=== PATIENT | female | born 1985 | race Caucasian/White ===

== ENCOUNTER 2017-03-11 06:58 | Emergency (ER) | payer OTHER ==
[~2017-03-11] VITALS: Ht 160 cm; Wt 94.1 kg
[~2017-03-11 06:58] MED LIST: INSU100C SC; MTF1000T PO; NPH,100V SC; PNV1TABL4 PO
[2017-03-11 07:05] VITALS: Ht 160 cm; Wt 94.1 kg
[2017-03-11] MEDS ORDERED: KETOROLAC 60 MG INJ IM STA (07:20)
[2017-03-11] MEDS ORDERED: KETOROLAC 30 MG INJ ONE (07:38)
[2017-03-11] MEDS ORDERED: KETOROLAC 60 MG INJ ONE (07:40)
--- NOTE | 2017-03-11 07:54 | ERD ---
ER Documentation Chief Complaint Chief Complaint CRENSHAW & NAUSEA X1 DAY, DENIES COUGH OR CONGESTION. LMP 03/10/17 HPI 31-year-old female complaining of headache since yesterday. Patient also reports fever last night with temperature 101, body ache, and weakness. Patient reports "getting over a cold". The headache is seen in the bilateral frontal region. Patient has photophobia, and reports pain with looking to either side, and with head movement. She took Tylenol last night without relief. She has nausea but no vomiting. Denies coughing currently. Denies abdominal pain or diarrhea. Denies neck pain. ROS All systems reviewed and are negative except as per history of present illness. Medications Home Meds Active Scripts Aspirin/Acetaminophen/Caffeine (Excedrin Extra Strength Caplet) 1 Each Tablet, 1 EACH PO Q6 Y for HEADACHE, #30 TAB Prov:JAGJITRENNY X. FURNITURE MOVER 03/11/17 Reported Medications Nph, Human Insulin Isophane (Humulin N) 100 Units/Ml Vial, 1 UNIT SC AC DINNER, VIAL 09/20/14 Insulin Lispro (Humalog) 100 U/Ml Cartridge, 1 UNITS SC WITH DINNER, EA 09/20/14 Insulin Lispro (Humalog) 100 U/Ml Cartridge, 20 UNITS SC WITH BREAKFAST, EA 09/20/14 Nph, Human Insulin Isophane (Humulin N) 100 Units/Ml Vial, 1 UNIT SC AC BREAKFAST, #1 VIAL 09/20/14 Pnv Cmb#95/Ferrous Fumarate/Fa ( MULTIVITAMINS TABLET) 1 Each Tablet, 1 EACH PO 09/20/14 Metformin* (Glucophage*) 1,000 Mg Tablet, 1000 MG PO BID, TAB 09/20/14 Allergies Allergies: Coded Allergies: No Known Allergy (Unverified , 03/11/17) PMhx/Soc Medical and Surgical Hx: pt denies Surgical Hx History of Surgery: No Hx Miscellaneous Medical Probl: Yes (HX HTN, DM) Hx Alcohol Use: No Hx Substance Use: No Hx Tobacco Use: No Physical Exam Vitals Vital Signs Date Time Temp Pulse Resp B/P Pulse Ox O2 Delivery O2 Flow Rate FiO2 03/11/17 07:05 99.8 96 18 144/90 99 Physical Exam General: Well-developed, well-nourished, conscious and coherent, in no distress Skin: Warm and dry without rash, good texture and turgor Head: Normocephalic without evidence of trauma Eyes: Sclera and conjunctivae normal; pupils equal, round, and reactive to light; extraocular movements are intact Ears: Canals are patent. Tympanic membranes are clear Nose/Face: Without rhinorrhea. Sinuses nontender. Mouth/throat: Mucous membranes are moist. Posterior pharynx clear without erythema or exudates Neck: Supple without meningismus or adenopathy. Carotids are equal. Trachea midline. No bruits or JVD Chest: Normal AP diameter. Good expansion without retractions. Nontender. Lungs are clear to auscultate bilaterally with good tidal volume Heart: Regular rate and rhythm. No murmur, rub, or gallops heard Extremities: Full range of motion. Good strength bilaterally. No clubbing, cyanosis, or edema. Peripheral pulses are intact. Sensation intact Neuro: Alert and oriented 4; GCS 15. Cranial nerves II - XII intact. Motor sensory exam nonfocal. Moves all extremities. Deep tendon reflexes 2+ in all extremities. Speech clear. No pronator drift. Gait steady. Results 24 hrs Current Medications Medications (Trade) Dose Ordered Sig/Sean Route PRN Reason Start Time Stop Time Status Last Admin Dose Admin Ketorolac Tromethamine (Toradol) 60 mg ONCE STAT IM 03/11/17 07:20 03/11/17 07:21 DC 03/11/17 07:41 Procedures/MDM Toradol 60 mg IM given to the patient in the ED. Patient reports reduction of pain after Toradol, although the headache is not completely resolved. I think the likely cause of patient's headache is tension headache. I doubt sinus or dental infection, TMJ syndrome, pseudotumor cerebri, meningitis, encephalitis, giant cell arteritis, glaucoma, subarachnoid hemorrhage, subdural or epidural hematoma, intracranial bleeding or tumor. Discussed with patient the risks and benefits of CT scan. Patient opted to forego CT at this time. Patient is afebrile, in no respiratory distress. Lungs are clear to auscultate. I doubt that patient has pneumonia or bronchitis. Patient appears well, stable for discharge and outpatient management. Medical decision making shared with patient and family. Education provided to patient and family. Patient and family expressed understanding of the plan. Medications on discharge: Excedrin. Follow-up: Primary care provider in 2-3 days or return to ED if worse. Disclaimer: Inadvertent spelling and grammatical errors are likely due to EHR/ dictation software use and do not reflect on the overall quality of patient care. Also, please note that the electronic time recorded on this note does not necessarily reflect the actual time of the patient encounter. Departure Diagnosis: Primary Impression: Headache Headache type: tension-type Headache chronicity pattern: acute headache Intractability: not intractable Qualified Code: G44.209 - Acute non intractable tension-type headache Condition: Stable RENNY DANIELSON NP Mar 11, 2017 07:54
[2017-03-11] MEDS ORDERED: ASPI-826 PO (08:21)
== END 2017-03-11 08:36 | disposition home or self-care (01) ==
LOC: FTE 06:58
DX: G44.209 Tension-type headache, unspecified, not intractable (principal); I10 Essential (primary) hypertension; E11.9 Type 2 diabetes mellitus without complications; Z79.4 Long term (current) use of insulin; Z79.84 Long term (current) use of oral hypoglycemic drugs
CPT/HCPCS: 96372; J1885; Z7502